=== PATIENT | male | born 1985 | race Caucasian/White ===

== ENCOUNTER → 2017-06-14 | Outpatient (CLI) | payer OTHER ==
--- NOTE | ~2017-06-14 | MR17 ---
[facility] A Service of [facility] & [facility] RADIOLOGY TEXT RESULTS PATIENT: MARIBEL GRIMALDO LOCATION: [facility] : 89 UNIT #: [id number] AGE: [address]: Dany Larios SEX: M ORDER DR: [id number] [place] [id number] [id number] O MR#: [id number] Acc #: [id number] NAME: MARIBEL GRIMALDO : 1985 SEX: M STUDY DATE/TIME: 06/14/2017 14:05 UNIT: [facility] ROOM: STUDY DESCRIPTION: MR Brain WWo Contrast Attending Physician: Dany Larios M.D. Referring Physician: Dany Larios M.D. Ordering Physician: Dany Larios III, M.D. Primary Care Physician: Richardson Chandler M.D. MRI CENTER REPORT This report is preliminary unless electronic signature is present. EXAM Brain MRI with and without contrast, 06/14/2017. HISTORY Blurred vision, foggy vision once or twice, per patient. Patient also complains of headache, peripheral neuropathy, concentration difficulty, headaches main in the back of the head for 2 weeks, lack of focus. TECHNIQUE MRI of the brain was performed prior to and following intervenous administration of 20 mL of MultiHance. Please be aware this is not a dedicated study of the orbits. COMPARISON There is no comparison imaging of the brain. FINDINGS There is no evidence for a recent ischemic insult on the diffusion series. 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 There is no MRI evidence for intracranial hemorrhage. The mastoid air cells are clear. Paranasal sinuses show a small amount of retained secretions in the left maxillary sinus, but no sinus air-fluid level. Major arterial intracranial flow voids are maintained. Globes are intact. The lenses are located. Superiorly ophthalmic veins are symmetric. Basilar cisterns are patent. Subtle rarefaction of white matter signal intensity noted in the posterior centrum semiovale to periatrial white matter. This is very nonspecific in age group. Please correlate for risk factors for small vessel disease. Ventricles are normal in size and configuration, and there is no extraaxial fluid collection. Following contrast administration, there is no pathologic intracranial enhancement. No intracranial mass lesion is suspected. Please correlate [facility] A Service of [facility] & [facility] RADIOLOGY TEXT RESULTS PATIENT: MARIBEL GRIMALDO LOCATION: [facility] : [birth year] UNIT #: [id number] AGE: [address]: Dany Larios SEX: M ORDER DR: for any clinical concern for papilledema, given presentation with episodes of blurred vision. Though more common in women of this age, please consider the possibility of pseudotumor cerebri as an etiology of blurred vision, given the patient's apparent large body habitus and mild cerebellar tonsillar ectopia. IMPRESSION 1. No evidence for a recent ischemic insult on the diffusion series. 2. Mild rarefaction of posterior white matter signal intensity is very nonspecific. Please correlate for risk factors for small vessel disease. 3. Mild cerebellar tonsillar ectopia. 4. Though the entity is more common in women, please correlate for any clinical concern for pseudotumor cerebri as the etiology of the patient's intermittent blurred vision. This entity can be seen in younger patients with large body habitus, and mild cerebellar tonsillar ectopia can be a secondary sign associated with it. STAT * RESULT Dictated by... Arlene Hollingsworth M.D. THIS IS AN ELECTRONICALLY VERIFIED REPORT Arlene Hollingsworth M.D. at 06/15/2017 7:04 AM [place] TD: 06/14/2017 19:05 JOB #: [id number] MRI CENTER REPORT Page 1 of 1
== END | disposition home or self-care (01) ==
LOC: SMRI 13:09
DX: H53.8 Other visual disturbances (principal); R41.840 Attention and concentration deficit; R51 Headache; G62.9 Polyneuropathy, unspecified; R63.1 Polydipsia; R35.8 Other polyuria; R90.82 White matter disease, unspecified; Q04.8 Other specified congenital malformations of brain
CPT/HCPCS: 70553; A9581